=== PATIENT | female | born 1945 | race Caucasian/White ===

== ENCOUNTER → 2023-07-24 14:00 | Outpatient (REF) | payer OTHER, SELFPAY | LOC: HWRAD 14:00 | PROVIDERS: ATTENDING PHYSICIAN Family Medicine | DX: M53.3 Sacrococcygeal disorders, not elsewhere classified (principal) | CPT/HCPCS: 72220 ==

== ENCOUNTER → 2023-09-25 11:00 | Outpatient (REF) | payer OTHER, SELFPAY | LOC: HWRCS 11:00 | PROVIDERS: ATTENDING PHYSICIAN Family Medicine | DX: I35.1 Nonrheumatic aortic (valve) insufficiency (principal) | CPT/HCPCS: 93005; 93306 ==

== ENCOUNTER → 2023-11-06 13:56 | Outpatient (REF) | payer OTHER, SELFPAY | LOC: PAVMRI 13:56 | PROVIDERS: ATTENDING PHYSICIAN Physician Assistant Medical; FAMILY PHYSICIAN Family Medicine | DX: M54.50 Low back pain, unspecified (principal); Z98.1 Arthrodesis status; M48.062 Spinal stenosis, lumbar region with neurogenic claudication | CPT/HCPCS: 72148 ==

== ENCOUNTER → 2023-12-07 10:35 | Outpatient (REF) | payer OTHER, SELFPAY | LOC: HWRAD 10:35 | PROVIDERS: ATTENDING PHYSICIAN Family Medicine | DX: R39.89 Other symptoms and signs involving the genitourinary system (principal); R33.9 Retention of urine, unspecified; R39.15 Urgency of urination | CPT/HCPCS: 76770 ==

== ENCOUNTER → 2023-12-18 13:26 | Outpatient (REF) | payer OTHER, SELFPAY | LOC: HWRAD 13:26 | PROVIDERS: ATTENDING PHYSICIAN Obstetrics & Gynecology; FAMILY PHYSICIAN Family Medicine | DX: R14.0 Abdominal distension (gaseous) (principal) | CPT/HCPCS: 76830; 76856 ==

== ENCOUNTER → 2024-03-05 12:48 | Outpatient (REF) | payer OTHER, SELFPAY | LOC: HWRAD 12:48 | PROVIDERS: ATTENDING PHYSICIAN Urology; FAMILY PHYSICIAN Family Medicine | DX: R33.9 Retention of urine, unspecified (principal); M62.89 Other specified disorders of muscle; R39.89 Other symptoms and signs involving the genitourinary system | CPT/HCPCS: 76770; 76856 ==

== ENCOUNTER → 2024-06-03 14:15 | Outpatient (REF) | payer OTHER, SELFPAY | LOC: HWRAD 14:15 | PROVIDERS: ATTENDING PHYSICIAN Nurse Practitioner Family; FAMILY PHYSICIAN Family Medicine | DX: M25.511 Pain in right shoulder (principal) | CPT/HCPCS: 73030 ==

== ENCOUNTER → 2024-06-28 11:06 | Outpatient (REF) | payer OTHER, SELFPAY | LOC: PAVMRI 11:06 | PROVIDERS: ATTENDING PHYSICIAN Nurse Practitioner Family; FAMILY PHYSICIAN Family Medicine | DX: M25.511 Pain in right shoulder (principal) | CPT/HCPCS: 73221 ==

== ENCOUNTER → 2024-08-16 14:42 | Outpatient (REF) | payer OTHER, SELFPAY | LOC: HWRAD 14:42 | PROVIDERS: ATTENDING PHYSICIAN Family Medicine | DX: M54.6 Pain in thoracic spine (principal) | CPT/HCPCS: 72072 ==

== ENCOUNTER 2024-10-09 10:31 | Emergency (ER) | payer OTHER, SELFPAY ==
[2024-10-09] VITALS (8 sets, daily range): BP systolic 115–153; BP diastolic 54–105; BMI 23.6
[2024-10-09 11:06] LABS: % Basophils 0.8 % (0-2); % Eosinophils 1.1 % (0-6); % Immature Granulocytes 0.2 % (0-0.5); % Lymphocytes 19.6 % (20.5-51.1); % Monocytes 5.9 % (1.7-9.3); % Neutrophils 72.4 % (42.2-75.2); Absolute Basophils 0.1 10^3/uL (0-0.2); Absolute Eosinophils 0.1 10^3/uL (0-0.7); Absolute Lymphocytes 1.2 10^3/uL (1.2-3.4); Absolute Monocytes 0.4 10^3/uL (0.1-0.6); Absolute Neutrophils 4.5 10^3/uL (1.4-6.5); Hematocrit 36.8 % (37.0-47.0); Hemoglobin 12.7 g/dL (12.0-16.0); Mean Corp Hgb Conc. 34.5 g/dL (33.0-37.0); Mean Corpuscular Hgb 32.5 pg (27.0-31.0); Mean Corpuscular Volume 94.1 fL (81.0-99.0); Mean Platelet Volume 10.2 fL (7.4-10.4); Nucleated Red Blood Cells % 0 %; Platelet Count 193 10^3/uL (130-400); Red Blood Cell Count 3.91 10^6/uL (4.20-5.40); Red Cell Dist. Width 12.8 % (11.5-14.5); White Blood Cell Count 6.2 10^3/uL (4.8-10.8)
[2024-10-09 11:11] LABS: ALT (SGPT) 19 U/L (0-35); AST (SGOT) 22 U/L (14-36); Albumin 3.9 g/dl (3.5-5.0); Alkaline Phosphatase 57 U/L (38-126); Blood Urea Nitrogen 11 mg/dl (7-17); Calcium 9.2 mg/dl (8.4-10.2); Carbon Dioxide 31 mmol/L (22-30); Chloride 105 mmol/L (98-107); Glucose 99 mg/dl (70-99); Potassium 4.5 mmol/L (3.5-5.1); Sodium 136 mmol/L (135-145); Total Bilirubin 0.4 mg/dl (0.2-1.3); Total Protein 6.3 g/dl (6.3-8.2); eGFR > 60.00
--- NOTE | 2024-10-09 11:13 | ED.GENMED ---
History of Present Illness
General
Chief Complaint: Cardiac Symptoms
Source: patient
Exam Limitations: none
Time Seen by Provider: 10/09/24 11:12
History of Present Illness
History of Present Illness:
79yoF with a history of hypothyroidism, aortic regurgitation, and tremors presenting with her granddaughter for evaluation of back pain. She started with pain in her L scapular region yesterday morning while she was pouring cereal into a bowl. She
has had severe pain since then. Pain comes in waves but has been mostly constant this morning. Pain now radiates to the neck and into the L arm. Nothing seems to make the pain worse. Specifically, she denies any pain with movement or breathing. She
has tried Tylenol and gabapentin without relief. No prior history of similar pains. She developed nausea this morning. She denies any chest pain, shortness of breath, paresthesias.
Past History
Past History
ED Past Medical History: Asthma, Hypothyroidism and Other (Essential tremor)
ED Past Surgical History: Cholecystectomy, Gynecological (Hysterectomy) and Orthopedic (Back surg)
Social History
Tobacco: Former smoker
Alcohol: Occasional
Personal:
Living: with family
Employment: Retired
Family History
Family History: Other (Noncontributory)
Phy Exam
Physical Exam
Physical Exam:
Appears uncomfortable, non-toxic
General Physical Exam
General Presentation: well appearing and mild distress
General Skin: warm and dry
General Habitus: normal and elderly
General Mental: alert
ENT Exam
ENT Exam: normocephalic
Cardiovascular Exam
Cardiovascular Exam: regular rate/rhythm, no edema, no murmur and normal peripheral pulses (2+ radial and DP pulses bilaterally)
Pulmonary Exam
Pulmonary Exam: lungs clear, no respiratory distress, no rales, no crackles, no rhonchi and no wheezing
Neurological Exam
Neurological Exam: alert
Benja Coma Scale
Eye Opening: Spontaneous
Verbal Response: Oriented
Motor Response: Obeys Commands
GCS Total Score: 15
Musculoskeletal Exam
Musculoskeletal Exam: other (No pain elicited with L arm or trunk movement. No skin changes to L upper back. +Tenderness to palpation above L scapula.)
Skin Exam
Skin Exam: normal color and warm/dry
Psychiatric Exam
Psychiatric Exam: normal mood/affect
Course
Orders/Labs/Results
Orders:
Orders
10/09/24 10:33
EKG [Electrocardiogram (*1)] Urgent
Reason for Study: Other
Other Reason for Exam: left shoulder pain with radiation to the back/ neck
EKG- Treatment ONCE
10/09/24 10:51
Complete Blood Count/With Diff Urgent
Comprehensive Metabolic Panel Urgent
Troponin I Urgent
10/09/24 11:22
CT Chest/abd/pelvis Angio W/wo Urgent
Comment:
Reason For Exam: L upper back pain radiating to neck/arm
Oxycodone/Acetaminophen [Percocet 5/325] 1 tablet PO NOW STA
10/09/24 11:23
Lidocaine [Lidocaine 4% Patch] 1 patch TOPICAL ONCE ONE
Apply Lidocaine patch(s) to:: L upper back
10/09/24 12:28
Ketorolac [Toradol] 15 mg IV NOW STA
10/09/24 13:22
Acetaminophen 1000MG/100Ml [Ofirmev] 1,000 mg in 100 ml IV ONCE
Acetaminophen IV Indication:: ED Narcotic Naive Pt-ONCE
Ketorolac [Toradol] 15 mg IV NOW STA
10/09/24 14:40
Dexamethasone Sod Phosphate [Decadron] 10 mg IV NOW STA
Abnormal Lab Results
10/09/24
10:51
RBC 3.91 L 10^6/uL
(4.20-5.40)
Hct 36.8 L %
(37.0-47.0)
MCH 32.5 H pg
(27.0-31.0)
Lymphocytes % 19.6 L %
(20.5-51.1)
Carbon Dioxide 31 H mmol/L
(22-30)
Creatinine 0.5 L mg/dL
(0.6-1.0)
10/09/24 10:51
10/09/24 10:51
Vital Signs
Initial and Last Documented VS:
Initial Vital Signs
Temp Pulse Resp BP Pulse Ox
97.0 F 71 16 153/71 100
10/09/24 10:41 10/09/24 10:41 10/09/24 10:41 10/09/24 10:41 10/09/24 10:41
Last Documented Vital Signs
Temp Pulse Resp BP Pulse Ox
98.5 F 65 13 130/54 98
10/09/24 14:21 10/09/24 15:00 10/09/24 15:00 10/09/24 15:00 10/09/24 14:30
MDM/Problems Addressed
Differential Diagnosis Includes:
79yoF here with L upper back pain x 1 day. Radiates to neck and L arm. Unrelieved with Tylenol/gabapentin. Not worse with movement. C/o nausea this morning. VSS. She appears uncomfortable on exam. There is tenderness to palpation above the L scapula
without skin changes. Differential diagnosis includes but is not limited to: muscle spasm, radiculopathy, ACS, aortic dissection, less likely pulmonary pathology
Initial ED plan: Check cardiac labs, EKG, and CTA dissection study. Percocet and lidocaine patch for symptoms.
*EKG
Interpreted by ED Provider?: Yes
EKG Intrepretation Date: 10/09/24
Heart Rate: 70
Rate: normal
Rhythm: sinus
[place]: normal axis
Interval: normal interval
QRS Pattern: normal QRS
Ischemia: no ischemia
*Critical Care Note
Total Time (30-74mins, 75-104mins- exclusive of procedures): Not Applicable
Update Note
Update Note:
Labs overall unremarkable. EKG shows normal sinus rhythm without ischemic changes and troponin within normal limits. CT is negative for aortic dissection or aneurysm. No acute abnormalities seen in chest or abdomen. Suspect muscle spasm.
Patient given IV Toradol, IV Tylenol, and Decadron with eventual improvement in symptoms. Supportive care discussed including heat, massage, topical lidocaine patch. Will provide prescription for Robaxin. She was advised to follow-up closely with
her PCP and ED return precautions reviewed. Patient discharged in stable condition and ambulated out of ED in no distress.
ED Attending Note
-
Portions of this chart may have been created with voice recognition software.� Occasional wrong word or��sound alike� substitutions may have occurred due to the inherent limitations of voice recognition software.
Discharge Plan
Departure
Patient Disposition: Home (Routine Discharge)
Date of Disposition: 10/09/24
Time of Disposition: 14:39
Patient with high blood pressure during this ER visit?: No
Discharge Problem:
Upper back pain on left side
Instructions: Upper Back Pain ED
Prescriptions:
New
methocarbamol 500 mg tablet
500 mg PO TID PRN (Reason: muscle spasms) Qty: 20 0RF
No Action
levothyroxine 50 MCG tablet
50 mcg PO DAILY
pyridoxine (vitamin B6) [Vitamin B-6] 250 MG tablet
250 mg PO DAILY
cholecalciferol (vitamin D3) 2,000 UNIT tablet
2,000 unit PO DAILY
Calcium
2 tab PO BID
Patient Comments:
pt does not know mg
aspirin 81 MG tablet,chewable
81 mg PO DAILY
Patient Comments:
took 4 baby aspirin today for chest pain
clonazepam 0.5 MG tablet
0.5 mg PO BID
docosahexaenoic acid-epa 1 CAP capsule
2 cap PO DAILY
Referrals:
Iris Luna, DO [Family Provider] -
Activity Restrictions/Additional Instructions:
Apply heat to affected area. Use lidocaine patches daily (12 hours on, 12 hours off). Take Tylenol 650mg every 6 hours as needed. You may take ibuprofen sparingly. Take Robaxin (muscle relaxer) as needed for breakthrough pain/spasms.
Please follow-up with your family doctor in 2 days. Return to the ER with any new or worsening symptoms.
Interventions
Interventions:
*Risk Screen - Suicide Last Done: 10/09/24 11:13
*General Assessment Last Done: 10/09/24 11:13
*Neglect/Abuse Screening Last Done: 10/09/24 11:13
*ED- Fall Risk Assessment Last Done: 10/09/24 11:13
*ED COVID-19 Vaccine History Last Done: 10/09/24 11:13
*Nursing Disposition Last Done: 10/09/24 15:15
ED- Pulmonary Assessment Last Done: 10/09/24 11:13
ED- Cardiac Assessment Last Done: 10/09/24 11:13
Discharge Date and Time
Discharge Date/Time: 10/09/24 15:32
Print Language: ZIMBABWEAN
[2024-10-09 11:22] LABS: Troponin I < 0.012 ng/ml
[2024-10-09] MEDS: PERCOCET 5/325 1 TABLET PO (12:03)
[2024-10-09] MEDS: LIDOCAINE 4% PATCH 1 PATCH TOPICAL (12:04)
[2024-10-09] MEDS: TORADOL 15 MG IV ×2 (12:47→13:32)
[2024-10-09] MEDS: OFIRMEV 100 IV (13:31)
[2024-10-09] MEDS: DECADRON 10 MG IV (14:43)
--- NOTE | 2024-10-09 14:52 | EDRN ---
Pt given box lunch and states she is waiting for her daughter to pick her up.
== END 2024-10-09 15:32 | disposition home or self-care (01) ==
LOC: EMR 10:31
PROVIDERS: EMERGENCY PHYSICIAN Emergency Medicine; FAMILY PHYSICIAN Family Medicine; OTHER PHYSICIAN Internal Medicine Cardiovascular Disease
DX: M54.6 Pain in thoracic spine (principal); J45.909 Unspecified asthma, uncomplicated; E03.9 Hypothyroidism, unspecified; Z87.891 Personal history of nicotine dependence; Z90.49 Acquired absence of other specified parts of digestive tract; I35.1 Nonrheumatic aortic (valve) insufficiency
CPT/HCPCS: 96374; 96375; 96376; 99284; 71275; 74174; 80053; 84484; 85025; 93005; Q9967

== ENCOUNTER → 2024-10-29 14:51 | Outpatient (REF) | payer OTHER, SELFPAY | LOC: RAD 14:51 | PROVIDERS: ATTENDING PHYSICIAN Family Medicine | DX: M62.81 Muscle weakness (generalized) (principal); R29.898 Other symptoms and signs involving the musculoskeletal system | CPT/HCPCS: 70450 ==

== ENCOUNTER → 2025-01-22 13:15 | Outpatient (REF) | payer OTHER, SELFPAY | LOC: HWRAD 13:15 | PROVIDERS: ATTENDING PHYSICIAN Internal Medicine Rheumatology; FAMILY PHYSICIAN Family Medicine | DX: M81.0 Age-related osteoporosis without current pathological fracture (principal) | CPT/HCPCS: 77080; 77081 ==

== ENCOUNTER 2025-03-04 02:33 | Observation (INO) | payer OTHER, SELFPAY ==
[2025-03-03 21:40] VITALS: BP 124/107
[2025-03-03 21:57] LABS: Hematocrit 37.2 % (37.0-47.0); Hemoglobin 12.9 g/dL (12.0-16.0); Mean Corp Hgb Conc. 34.7 g/dL (33.0-37.0); Mean Corpuscular Volume 91.9 fL (81.0-99.0); Nucleated Red Blood Cells % 0 %; Platelet Count 173 10^3/uL (130-400); Red Cell Dist. Width 12.7 % (11.5-14.5)
[2025-03-03 22:12] LABS: ALT (SGPT) 19 U/L (0-35); AST (SGOT) 25 U/L (14-36); Albumin 4.5 g/dl (3.5-5.0); Alkaline Phosphatase 70 U/L (38-126); Blood Urea Nitrogen 16 mg/dl (7-17); Calcium 9.2 mg/dl (8.4-10.2); Carbon Dioxide 27 mmol/L (22-30); Chloride 98 mmol/L (98-107); Glucose 119 mg/dl (70-99); Lipase 243 U/L (23-300); Potassium 4.3 mmol/L (3.5-5.1); Sodium 131 mmol/L (135-145); Total Protein 7.0 g/dl (6.3-8.2); eGFR > 60.00
[2025-03-03 23:52] VITALS: BP 121/50
[2025-03-03 23:55] VITALS: BMI 24.5
[2025-03-04] VITALS (14 sets, daily range): BP systolic 103–137; BP diastolic 34–62; BMI 24.1
--- NOTE | 2025-03-04 00:12 | ED.GENMED ---
History of Present Illness
General
Chief Complaint: Abdominal Pain
Source: patient
Exam Limitations: none
Time Seen by Provider: 03/03/25 23:54
Nursing documentation reviewed up to this point in time: agreed with
History of Present Illness
History of Present Illness:
This is an 79-year-old woman who presents with acute onset of right sided abdominal pain that began around 1 PM today. Initially the pain was located in the mid abdomen but later migrated to the right side. She reports somewhat sudden moderate
nature of the pain and describes it as worsening throughout the day. She attempted a bowel movement to alleviate the discomfort without significant relief, even after taking 2 Gas-X tablets. Pain is much worse tonight, worse with ambulation or any
movement, worse with standing upright causing her to flex forward slightly. She admits to nausea without vomiting. Lack of appetite for dinner. Mild chills tonight but does not believe she had a fever. No dysuria and urgency and or hematuria.
No diarrhea or constipation. No back pain or flank pain. No history of similar episodes of pain.
Past History
Past History
ED Past Medical History: Asthma, Hypothyroidism and Other (Essential tremor)
ED Past Surgical History: Cholecystectomy, Gynecological (Hysterectomy) and Orthopedic (Back surg)
Social History
Tobacco: Former smoker
Alcohol: Occasional
Personal:
Living: with family
Employment: Retired
Family History
Family History: Other (Noncontributory)
Phy Exam
Physical Exam
Physical Exam:
GENERAL: 79-year-old woman appears somewhat younger than stated age, bright and alert, pleasant, appears mildly uncomfortable but easily communicative. Low-grade fever 99.1 �F noted. Daughter is accompanying.
EYE: anicteric
NECK: Supple, nontender, no meningismus, no significant adenopathy.
ENT: oral mucosa is moist. No rhinorrhea.
CARDIAC: Regular rate and rhythm. no murmur.
LUNGS: Clear breath sounds bilaterally, no acute respiratory distress, no wheezes/rales/rhonchi
ABDOMEN: Soft, nondistended, exquisite tenderness right lower quadrant, right lateral mid abdomen with moderate local guarding, mild rebound, no rigidity, no palpable masses, no cvat. normoactive BS.
NEUROLOGICAL: Alert and oriented x3, no focal neuro deficits.
SKIN: Warm and dry, normal color, skin intact. No rash.
MUSCULOSKELETAL: No C/C/E. peripheral pulses are full and equal b/l. No palpable tenderness.
PSYCH: Normal and appropriate interaction.
Course
Orders/Labs/Results
Orders:
Orders
03/03/25 21:49
Complete Blood Count/With Diff Urgent
Comprehensive Metabolic Panel Urgent
Lipase Urgent
03/04/25 00:08
0.9% Sodium Chloride 1000 ml [Nss] 1,000 ml IV BOLUS
Morphine Sulfate 4 mg IV NOW STA
Ondansetron Injectable [Zofran] 4 mg IV NOW STA
03/04/25 00:09
CT Abd/pelvis W Iv Cont Urgent
Comment:
Reason For Exam: R side abd pain x 1 day-progressive, N
03/04/25 00:15
Lactic Acid Urgent
03/04/25 01:30
Acetaminophen 1000MG/100Ml [Ofirmev] 1,000 mg in 100 ml IV ONCE
Acetaminophen IV Indication:: Ileus/Delayed Bowel Func.
03/04/25 01:37
CefTRIAXone [Rocephin] 1,000 mg IV NOW STA
MetroNIDAZOLE 500 MG/100 ML [Flagyl 500 mg] 100 ml IV NOW
03/04/25 02:20
Admit/Transfer Patient As Directed
Co-Sign Provider:
Level of Care: Observation services
Assign to:: Medical/Surgical
Physician / Group: Dr. Alcala/ Surgical
Diagnosis: acute appendicitis
PRN Pain Medication Management As Directed
May give lesser potent ordered pain med per pt: Yes
preference::
Protocol:: Medication orders for pain may be administered in a
manner that supports deferring to patient preference
when the pt is:
- Requesting an ordered lesser potent pain medication.
Least to most potent pain medications are defined
as: acetaminophen < NSAID < tramadol < opioids
(morphine, oxycodone, hydromorphone).
- Requesting a lesser dose of the same medication IF
ORDERED.
- Requesting a less intrusive route of administration
if both routes are prescribed by the provider (PO <
IV).
03/04/25 02:21
Code Status As Directed
Resuscitation Status: Full Code
03/04/25 03:16
0.9% Sodium Chloride 1000 ml [Nss] 1,000 ml IV 60 mls/hr
Acetaminophen [Tylenol] 650 mg PO Q4HPRN PRN
Bisacodyl [Dulcolax] 10 mg RECTAL [id number] PRN
Docusate W/Senna [Senokot-S] 1 tablet PO BIDPRN PRN
HYDROmorphone [Dilaudid] 0.25 mg IV Q4HPRN PRN
HYDROmorphone [Dilaudid] 0.5 mg IV Q4HPRN PRN
Ipratropium/Albuterol Sulfate [Duoneb] 3 ml INH R Q4HPRN PRN
Ondansetron Injectable [Zofran] 4 mg IV Q6HPRN PRN
Polyethylene Glycol Powder [Miralax] 17 grams PO DAILYPRN PRN
03/04/25 03:16
Activity As Directed
Activity Level: As Tolerated
Pneumatic Compression Sleeves As Directed
Type: Knee high
Vital Signs As Directed
Frequency: Per unit guidelines
DX Deep Vein Thrombosis Video Routine
03/04/25 06:00
EKG [Electrocardiogram (*1)] IN AM
Reason for Study: QTc Monitoring
NPO
Allow oral meds: Yes
Allow clear liquids: No
Abnormal Lab Results
03/03/25
21:49
WBC 13.3 H 10^3/uL
(4.8-10.8)
RBC 4.05 L 10^6/uL
(4.20-5.40)
MCH 31.9 H pg
(27.0-31.0)
Absolute Neuts (auto) 11.2 H 10^3/uL
(1.4-6.5)
Absolute Lymphs (auto) 0.9 L 10^3/uL
(1.2-3.4)
Absolute Monos (auto) 1.1 H 10^3/uL
(0.1-0.6)
Neutrophils % 83.8 H %
(42.2-75.2)
Lymphocytes % 7.1 L %
(20.5-51.1)
Sodium 131 L mmol/L
(135-145)
Creatinine 0.5 L mg/dL
(0.6-1.0)
Glucose 119 H mg/dl
(70-99)
03/03/25 21:49
03/03/25 21:49
Vital Signs
Initial and Last Documented VS:
Initial Vital Signs
Temp Pulse Resp BP Pulse Ox
98.7 F 78 18 124/107 100
03/03/25 21:40 03/03/25 21:40 03/03/25 21:40 03/03/25 21:40 03/03/25 21:40
Last Documented Vital Signs
Temp Pulse Resp BP Pulse Ox
98.1 F 83 16 137/54 97
03/04/25 03:19 03/04/25 03:19 03/04/25 03:19 03/04/25 03:19 03/04/25 03:19
MDM/Problems Addressed
Differential Diagnosis Includes:
Differential diagnosis includes, in no particular order and is not limited to:
Appendicitis
Diverticulitis
small bowel obstruction
Ischemic bowel
Colitis
Common bile duct stone/biliary disease
Abdominal mass
Hernia
Kidney stones
Urinary tract infection
Less likely pneumonia�referred pain
Patient did have a low-grade fever and thus far labs reveal mildly elevated white blood cell count of 13.3, unremarkable chemistries. Lipase is normal.
Check lactic acid, assess for potential ischemic bowel
Will medicate for pain and nausea, initiate IV fluids and will plan for CT abdomen pelvis with IV contrast.
MDM/Problems Addressed:
Acute right-sided abdominal pain with nausea
Chronic conditions affecting care: Previous abdomnial surgery
*Radiology
Radiology exam reviewed: radiology read reviewed
*Pulse Oximetry
SaO2: 98
Oxygen Mode of Delivery: Room air
Patient hypoxic: no
*Critical Care Note
Total Time (30-74mins, 75-104mins- exclusive of procedures): Not Applicable
Update Note
Update Note:
01:30
CAT scan shows acute appendicitis with appendix located retrocecal, appendicolith noted. No perforation or abscess.
case d/w gen surgery. will admit to their service
Will continue IV fluids, pain medication, will initiate IV antibiotics. Pt with hx of PCN allergy. will initiate rocephin/metronidazole.
ED Attending Note
-
Portions of this chart may have been created with voice recognition software.� Occasional wrong word or��sound alike� substitutions may have occurred due to the inherent limitations of voice recognition software.
Discharge Plan
Departure
Patient Disposition: Admit
Date of Disposition: 03/04/25
Time of Disposition: 01:42
Admit to: Med/Surg
Admit to doctor: Cari
Presentation/result/management discussed w/ accepting MD/DO: General surgery
Discharge Problem:
Acute appendicitis
Interventions
Interventions:
*Risk Screen - Suicide Last Done: 03/03/25 21:42
*General Assessment Last Done: 03/03/25 21:42
*Neglect/Abuse Screening Last Done: 03/03/25 23:56
*ED- Fall Risk Assessment Last Done: 03/03/25 23:56
*ED COVID-19 Vaccine History Last Done: 03/03/25 21:42
*ED Influenza Vaccine History Last Done: 03/03/25 21:42
*Nursing Disposition Last Done: 03/04/25 03:00
GW-Lughqw-Antibjmmur Assessment Last Done: 03/03/25 23:56
Discharge Date and Time
Discharge Date/Time: 03/04/25 03:01
[2025-03-04] MEDS: NSS 1000 IV ×3 (00:14→21:22)
[2025-03-04] MEDS: ZOFRAN 4 MG IV ×2 (00:18→11:54)
[2025-03-04] MEDS: MORPHINE SULFATE 4 MG IV (00:20)
[2025-03-04] MEDS: OFIRMEV 100 IV (01:35)
[2025-03-04] MEDS: ROCEPHIN 1000 MG IV ×2 (01:45→10:04)
[2025-03-04] MEDS: FLAGYL 500 MG 100 IV ×3 (01:59→18:07)
--- NOTE | 2025-03-04 02:19 | HPS.HSE ---
Addendum entered and electronically signed by Desmond Alcala MD 03/04/25 08:06:
Patient seen and examined.
Patient is an 79 yo F with a PMH of GERD, hypothyroidism, essential tremors, s/p laparoscopic cholecystectomy, s/p lumbar laminectomy and fusion, s/p vaginal hysterectomy, and s/p tubal ligation who presents with 24 hours of RLQ/flank abdominal
discomfort. Ms. Murphy states that her symptoms began acutely yesterday afternoon. Reports feeling well prior to this. No chronic or prior episodes of large LLQ abdominal discomfort. Associated nausea, but no vomiting. Low-grade fevers, but
no chills. Fluctuations in GI function. No chronic GI issues. She has had multiple colonoscopies in the past with no prior polyps or cancerous lesions. Family history notable for polyposis in her daughter. No history of IBD or colon cancers.
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
Gen: NAD
Abd: soft, tender in RLQ/flank, mild distension, no diffuse peritonitis, incisions well healed
Labs and CT scan imaging were reviewed.
Patient is an 79 yo F p/w acute appendicitis
The natural history and pathophysiology of appendicitis was discussed. CT scan imaging as a relates to her appendix was reviewed. Options for management including medical management with antibiotics versus surgical management with appendectomy
were considered and discussed. The pros and cons of both approaches was discussed. Specifically, we discussed failure of medical management and future episodes of appendicitis versus surgical risks. She is at increased risk for failure of medical
management given the presence of appendicoliths.
Plan for a laparoscopic appendectomy. The procedure itself, as well as the risks, benefits, and alternatives was discussed. Specifically, we discussed the risks of bleeding, infection, injury to surrounding structures (bowel, bladder), staple line
leak, need for open procedure. Typical postprocedural recovery was discussed. 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 All questions answered. Consent signed.
-- Laparoscopic appendectomy
-- NPO, IVF
-- Abx: Ceftriaxone and Flagyl
Original Note:
Family Physician
-
Family Physician: Iris Luna
Chief Complaint
-
Abdominal pain
History of Present Illness
a 79 years old female with PMH of Hypothyroidism and essential tremors (on Primidone 300mg BID), present to ER with a complain of abdominal pain that started around 1pm yesterday. Pain initially on the lower middle of the abdomen then localized to
the RT side which increases with movement. Patient took 2 gas x tablets with no relief. Pain get worse at night time, with nausea, lack of appetite. Denies urinary symptom, diarrhea, constipation, vomiting. Denies similar episodes of pain.
Medical History
Past Medical History
Past Medical History: Reports Hypothyroidism
Past Surgical History: Reports Cholecystectomy and Gynocological (hysterotomy )
Social History
Tobacco: Former Smoker
Alcohol: Occasional
Drug: None
Personal:
Living: With Family
Employment: Retired
Family History
Family History: Not pertinent
Allergies / Home Medications
Allergies reflects when Allergies were last updated in [facility].
Home Medications with original date entered in [facility]
Allergy/Medication List:
Patient Allergies
Allergy/AdvReac Type Severity Reaction Status Date / Time
levofloxacin (From Levaquin) Allergy Rash Verified 03/03/25 21:43
Penicillins Allergy Swelling Verified 03/03/25 21:43
Sulfa (Sulfonamide Allergy GI upset Verified 03/03/25 21:43
Antibiotics)
(Sulfa(Sulfonamide
Antibiotics))
Home Medications Table - record
�Medication �Instructions �Recorded �Confirmed
Calcium 2 tab PO BID 05/04/12 03/04/25
cholecalciferol (vitamin D3) 50 2,000 unit PO DAILY 05/04/12 03/04/25
mcg (2,000 unit) tablet
levothyroxine 50 mcg tablet 50 mcg PO DAILY 05/04/12 03/04/25
pyridoxine (vitamin B6) 250 mg 250 mg PO DAILY 05/04/12 03/04/25
tablet (Vitamin B-6)
biotin 5,000 mcg chewable tablet 5,000 mcg PO DAILY 03/04/25 03/04/25
famotidine 20 mg tablet (Pepcid) 20 mg PO BID 03/04/25 03/04/25
magnesium 200 mg tablet 400 mg PO DAILY 03/04/25 03/04/25
primidone 250 mg tablet 300 mg PO BID 03/04/25 03/04/25
propylene glycol 0.6 % eye drops 1 drp ophthalmic (eye) BID 03/04/25 03/04/25
(Systane Complete)
Review of Systems
-
A 12 point ROS was completed and negative except as noted: Yes
Constitutional: Reports No Symptoms
EENT: Reports No Symptoms
Respiratory: Reports No Symptoms
Cardiac: Reports No Symptoms
Abdomen/GI: Reports Abdominal Pain (RLQ) and Nausea
Physical Exam
Vital Signs
Vital Signs
Temp Pulse Resp BP Pulse Ox
99.1 F 78 18 119/49 100
03/04/25 00:10 03/03/25 21:40 03/03/25 21:40 03/04/25 02:07 03/04/25 02:08
Physical Exam
General: No Apparent Distress
Respiratory: Clear
Cardiac: Regular Rhythm
GI: Soft, Normal Bowel Sounds and Tender (RLQ)
Musculoskeletal: No Edema
Neuro: Awake and AO x 3
Psych: Calm
Laboratory Results
-
03/03/25 21:49
03/03/25 21:49
Laboratory Results
Lactic Acid 1.1 mmol/L (0.7-2.0) 03/04/25 00:15
Total Bilirubin 0.7 mg/dl (0.2-1.3) 10/06/25 21:49
AST 25 U/L (14-36) 03/03/25 21:49
ALT 19 U/L (0-35) 03/03/25 21:49
Alkaline Phosphatase 70 U/L (38-126) 03/03/25 21:49
Lipase 243 U/L (23-300) 03/03/25 21:49
Data Reviewed
-
CT Scan: Discussed with Patient
Lab Data: Discussed with Patient
Impression/Plan
-
CT abdomen and pelvis contrast result
with acute appendicitis
1.4 cm calcified appendicolith in the proximal appendix, mild periappendiceal inflammatory changes, no perforation or abscess.
IMPRESSION:
Acute appendicitis
PLAN:
Admit/observation/ med-surg (Dr. Alcala/ surgical services)
NPO
IVF
Analgesics as needed.
antiemetics as needed.
Received Flagyl and ceftriaxone in ER. Patient is allergic to ( sulfa, Penicillin, and Levaquin).
Essential tremors
(on Primidone 300mg BID)
Hypothyroidism
On Levothyroxine
DVT prophylaxis SCDs
Code status Full code
[2025-03-04] MEDS: DILAUDID 0.25 MG IV ×2 (04:13→10:02)
--- NOTE | 2025-03-04 04:31 | PTCARENOTE ---
Received pt from ED at 03:20. Pt aaox3, able to make needs known. Tremors in B/L hands (hx essential tremors). Pt reported occasional dysphagia, passed swallow screening. Currently NPO with meds. Medsurg, not on continuous heart monitor. Palpable
pedal pulses, no edema. Refusing SCDs at this time. Education provided on the purpose of SCDs, video order set assigned. Continent of bowel and bladder, abdomen round/distended with R sided abdominal pain, 0.25mg dilaudid given. C/o intermittent
nausea. Declined zofran at this time. Skin intact. NS@60ml/hr through R AC. EKG ordered for AM. Call mascorro and belongings within reach. Pt resting comfortably in bed at this time. VSS. Care ongoing.
[2025-03-04] MEDS: SYNTHROID 50 MCG PO (05:21)
--- NOTE | 2025-03-04 08:06 | W.SUR.PREOP ---
Pre-Operative Surgical Note
-
I have examined this patient prior to the performance of the scheduled procedure.
The patient's condition is unchanged from the time of the current History and
Physical and the patient is able to undergo the scheduled procedure.
[2025-03-04] MEDS: STERILE WATER FOR INJECTION 10 ML IV (10:03)
[2025-03-04] MEDS: TYLENOL 650 MG PO (11:53)
--- NOTE | 2025-03-04 15:57 | W.IMMPOSTOP ---
Surgical Immed Post Op Note
-
Primary Surgeon: Cari
Assisting Surgeon: KATHY Mcelroy
Pre-op Diagnosis: Acute appendicitis
Post-op Diagnosis: Acute appendicitis
Procedure Performed: Laparoscopic appendectomy
Anesthesia Type: General
Specimen / Cultures:
1. Appendix
Estimated Blood Loss: 3 cc
Complications: None
Operative Findings:
1. Acutely inflamed, gangrenous tip appendicitis, no evidence of perforation
2. Mesentery taken with Ligasure, base with garcia load stapler
[2025-03-04] MEDS: MYSOLINE 250 MG PO ×2 (17:18→21:21)
[2025-03-04] MEDS: MYSOLINE 50 MG PO ×2 (17:18→21:21)
--- NOTE | 2025-03-04 19:33 | PTCARENOTE ---
RN received report from PACU post lap appendectomy. Pt came up to floor via pt's bed. Pt awake and alert, with no complains of pain at this time. VS assessed, and lap sites clean dry and intact. Lap sites continued to be monitored throughout shift.
Plan of care on going.
[2025-03-04] MEDS: DILAUDID 0.5 MG IV (21:20)
[2025-03-05] MEDS: FLAGYL 500 MG 100 IV ×2 (01:21→11:18)
[2025-03-05 03:00] VITALS: BP 107/46
--- NOTE | 2025-03-05 04:20 | W.PN.UPDATE ---
Update Note
Progress Note Update
Asked to see patient for right hand swelling. Patients right hand is swollen/feels tight per patient. IV line is in that arm. Patient stated that she did have a thrombus after a previous surgery and was on blood thinners for a while but is not on at
this time. Will have IV changed to other arm and order U/S to rule out DVT.
[2025-03-05] MEDS: SYNTHROID 50 MCG PO (05:55)
[2025-03-05] MEDS: TYLENOL 650 MG PO ×2 (05:56→10:06)
[2025-03-05 07:00] VITALS: BP 117/49
--- NOTE | 2025-03-05 08:53 | W.PN.GS2 ---
Today's Communication / Plan
-
-- DC today
Assessment / Plan
-
Patient is a 79 yo F POD#1 s/p laparoscopic appendectomy
AVSS
No new labs
Recovering well. No post-operative concerns.
-- Regular diet
-- Pain control: Tylenol, Toradol, Tramadol (patient refuses narcotics on DC)
-- HLIV
-- Abx: Ceftriaxone and Flagyl, will DC on 4 day PO course
-- Home meds
-- DVT: Lovenox, SCDs
-- DC today
Subjective Data
-
Date of Service: March 05, 2025
No complaints. Pain well controlled. Pre-op symptoms resolved. No nausea or emesis. Passing flatus, no BM. No fevers.
Objective Data
-
Intake and Output
03/04/25 03/05/25 03/06/25
06:59 06:59 06:59
Intake Total 480 / 480 580 / 580
Balance 480 / 480 580 / 580
Intake:
Oral fluids 480 / 480 480 / 480
IV fluids (Total) 100 / 100
Normosol 100 / 100
Other:
Number of approximated MODERATE 2
amounts of urine
Number of approximated LARGE 1
amounts of urine
Vital Signs
Temp Pulse Resp BP Pulse Ox
98.3 F 75 16 117/49 94
03/05/25 07:00 03/05/25 07:00 03/05/25 07:00 03/05/25 07:00 03/05/25 07:00
Lab Results
03/03/25 21:49
03/03/25 21:49
Calcium 9.2 mg/dl (8.4-10.2) 03/03/25 21:49
Total Bilirubin 0.7 mg/dl (0.2-1.3) 03/03/25 21:49
AST 25 U/L (14-36) 03/03/25 21:49
ALT 19 U/L (0-35) 03/03/25 21:49
Alkaline Phosphatase 70 U/L (38-126) 03/03/25 21:49
Total Protein 7.0 g/dl (6.3-8.2) 03/03/25 21:49
Albumin 4.5 g/dl (3.5-5.0) 03/03/25 21:49
Physical Exam
-
Gen: NAD
Abd: soft, mild tenderness, mild distension, non-peritoneal, incisions c/d/i - mild reactive redness at umbilicus non-tender non-blanching, no ecchymosis or drainage
Patient has a webber catheter: No
Patient has a central line: No
--- NOTE | 2025-03-05 10:49 | CM ---
CM met with Kaity at bedside to complete IA. Patient had an appendectomy late last night. Kemp notice given to patient today and she is very unhappy that she was not told prior to be admitted that she was Observation status.
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 The home is a split level with no entry steps; 5 entry steps from the front door and 6 additional steps to the second level where she has a bedroom and bathroom. Pt's daughter
and granddaughter are caring for her and she has a ride home via a friend today.
Plan: Discharge to home with no identified needs.
[2025-03-05 11:00] VITALS: BP 124/49
[2025-03-05] MEDS: ROCEPHIN 1000 MG IV (11:09)
[2025-03-05] MEDS: STERILE WATER FOR INJECTION 10 ML IV (11:10)
== END 2025-03-05 13:29 | disposition home or self-care (01) ==
LOC: 3 WEST ACU 02:33
PROVIDERS: Student in an Organized Health Care Education/Training Program; ADMITTING PHYSICIAN Surgery; EMERGENCY PHYSICIAN Emergency Medicine; FAMILY PHYSICIAN Family Medicine
DX: K35.891 Other acute appendicitis without perforation, with gangrene (principal); K38.1 Appendicular concretions; R10.9 Unspecified abdominal pain; R63.0 Anorexia; R11.0 Nausea; J45.909 Unspecified asthma, uncomplicated; E03.9 Hypothyroidism, unspecified; K21.9 Gastro-esophageal reflux disease without esophagitis; G25.0 Essential tremor; N73.6 Female pelvic peritoneal adhesions (postinfective); K76.0 Fatty (change of) liver, not elsewhere classified; K83.8 Other specified diseases of biliary tract; R94.31 Abnormal electrocardiogram [ECG] [EKG]; Z87.891 Personal history of nicotine dependence; Z90.49 Acquired absence of other specified parts of digestive tract; Z90.710 Acquired absence of both cervix and uterus; Z88.0 Allergy status to penicillin; Z98.1 Arthrodesis status; Z98.51 Tubal ligation status; Z88.1 Allergy status to other antibiotic agents; Z88.2 Allergy status to sulfonamides; Z79.890 Hormone replacement therapy
CPT/HCPCS: 44970; 74177; 80053; 83605; 83690; 85025; 88304; 93005; 96365; 96375; 99285; Q9967